=== PATIENT | female | born 1965 | race Caucasian/White ===

== ENCOUNTER 2018-01-12 14:50 | Emergency (ER) | payer SELFPAY ==
[~2018-01-12] VITALS: Ht 160 cm; Wt 97.0 kg
[2018-01-12] MEDS ORDERED: LIDOCAINE HCL 1% 20ML VIAL (Pyxis) INJ INFIL ONE (15:15)
[2018-01-12] MEDS ORDERED: TETANUS, DIPHTHERIA, PERTUSSIS VAC/PF 0.5ML (>7YR OLD) IM ONE (15:15)
[2018-01-12] MEDS ORDERED: IBUPROFEN 600MG TABLET PO ONE (15:30)
[2018-01-12] MEDS ORDERED: BACITRACIN ZINC OINT UDPKT TOP ONE (15:30)
[2018-01-12 15:51] VITALS: BP 156/104
[2018-01-12] MEDS ORDERED: LIDOCAINE HCL/PF 1% 10 MG/ML 5ML VIAL IJ ONE (16:00)
== END 2018-01-12 16:21 | disposition home or self-care (01) ==
LOC: ER 14:50
DX: S61.411A Laceration without foreign body of right hand, initial encounter (principal); I10 Essential (primary) hypertension; E11.9 Type 2 diabetes mellitus without complications; W45.8XXA Other foreign body or object entering through skin, initial encounter; Y93.89 Activity, other specified; Y92.89 Other specified places as the place of occurrence of the external cause; Y99.8 Other external cause status
CPT/HCPCS: 12001; 90471; 90715; 99283; J3490; Z7610

== ENCOUNTER 2018-01-16 14:58 | Emergency (ER) | payer SELFPAY ==
[~2018-01-16] VITALS: Ht 160 cm; Wt 100.0 kg
[2018-01-16 15:13] VITALS: BP 141/86
== END 2018-01-16 17:56 | disposition home or self-care (01) ==
LOC: ER 16:25
DX: Z48.00 Encounter for change or removal of nonsurgical wound dressing (principal); R03.0 Elevated blood-pressure reading, without diagnosis of hypertension
CPT/HCPCS: 99282

== ENCOUNTER 2018-01-23 15:11 | Emergency (ER) | payer SELFPAY ==
[~2018-01-23] VITALS: Ht 157.5 cm; Wt 97.0 kg
[2018-01-23 15:16] VITALS: BP 142/86
== END 2018-01-23 15:33 | disposition home or self-care (01) ==
LOC: ER 15:11
DX: Z48.01 Encounter for change or removal of surgical wound dressing (principal); R03.0 Elevated blood-pressure reading, without diagnosis of hypertension; E11.9 Type 2 diabetes mellitus without complications
CPT/HCPCS: 99281; Z7610